=== PATIENT | female | born 1985 | race Two or more races ===

== ENCOUNTER 2022-08-27 21:03 | Emergency (ER) | payer MEDICAID, OTHER ==
[~2022-08-27] VITALS: Ht 165.1 cm; Wt 64.9 kg
[2022-08-27 21:09] VITALS: BP 122/70
--- NOTE | 2022-08-27 21:59 | NUR ---
Patient discharged to home in stable condition. Written and verbal after care instructions given. Patient verbalizes understanding of instruction.
== END 2022-08-27 21:59 | disposition home or self-care (01) ==
LOC: ER 21:05
DX: Z02.89 Encounter for other administrative examinations (principal)